=== PATIENT | male | born 1980 | race Caucasian/White ===

== ENCOUNTER 2016-10-06 10:30 | Emergency (ER) | payer MEDICARE, MEDICAID ==
[2016-10-06 10:43] VITALS: RESP 18; TEMP 97
[2016-10-06] MEDS ORDERED: KETOROLAC TROMETHAMINE 30 MG/ML SOL IM ONE (11:06)
[2016-10-06] MEDS ORDERED: CYCLOBENZAPRINE 10 MG TAB PO ONE (11:07)
[2016-10-06] MEDS ORDERED: ACETAMINOPHEN 500 MG 500 MG TAB PO ONE (11:07)
[2016-10-06] MEDS ORDERED: KETOROLAC TROMETHAMINE 30 MG/ML SOL ONE (11:07)
[2016-10-06 11:10] LABS: APPEARANCE,URINE Clear; BILIRUBIN,URINE NEGATIVE (NEGATIVE); COLOR,URINE Yellow; GLUCOSE, URINE (UA) NEGATIVE (NEGATIVE); KETONES,URINE 1+ (NEGATIVE); LEUKOCYTE ESTERASE ,URINE NEGATIVE (NEGATIVE); NITRATE,URINE NEGATIVE (NEGATIVE); OCCULT BLOOD,URINE NEGATIVE (NEG-TRACE); PH,URINE 6.5; UROBILINOGEN,URINE 0.2 (0.2-1.0 EU)
[2016-10-06] MEDS ORDERED: ONDANSETRON HCL 4 MG TAB PO ONE (11:11)
[2016-10-06] MEDS ORDERED: ONDANSETRON HCL 4 MG TAB ONE (11:12)
[2016-10-06 11:15] LABS: RBC,URINE NEG (0-3AV/HPF); WBC,URINE 0-1 (0-5AV/HPF)
[2016-10-06 11:44] LABS: BASOPHILS % (AUTO) 1 % (0-3); EOSINOPHILS % (AUTO) 1 % (0-9); HEMATOCRIT 41 % (39-53); MEAN CORPUSCULAR HGB CONC 35.7 gm/dl (32.0-36.0); MONOCYTES % (AUTO) 5.8 % (0-12)
[2016-10-06 12:00] LABS: ALBUMIN 3.9 gm/dl (3.4-5.0); CALCIUM 9.3 mg/dl (8.5-10.1); POTASSIUM 3.9 mMol/L (3.5-5.1)
[2016-10-06 12:03] VITALS: BP 110/58; PULSE 65; O2SAT 97
== END 2016-10-06 12:20 | disposition home or self-care (01) | DRG 392 ==
LOC: ED 10:30
DX: R10.9 Unspecified abdominal pain (principal)
CPT/HCPCS: 36415; 74176; 80053; 81001; 85025; 96372; 99283; 99284; J1885

== ENCOUNTER 2017-08-09 20:24 | Inpatient (IN) | payer MEDICAID, MEDICARE, OTHER ==
[2017-08-09 20:50] LABS: BASOPHILS % (AUTO) 2 % (0-3); EOSINOPHILS % (AUTO) 0 % (0-9); HEMATOCRIT 38 % (39-53); MEAN CORPUSCULAR HGB CONC 37.5 gm/dl (32.0-36.0); MEAN CORPUSCULAR VOLUME 87 fL (80-100); MONOCYTES % (AUTO) 7.3 % (0-12); NEUTROPHILS % (AUTO) 83.2 % (37-80)
[2017-08-09] MEDS ORDERED: ONDANSETRON HCL 4 MG/2 ML SOL ONE (21:01)
[2017-08-09] MEDS ORDERED: HALOPERIDOL LACTATE 5 MG/ML SOL ONE (21:01)
[2017-08-09] MEDS ORDERED: HALOPERIDOL LACTATE 5 MG/ML SOL IM ONE (21:01)
[2017-08-09 21:05] LABS: ALBUMIN 4.6 gm/dl (3.4-5.0); ALT 38 IU/L (14-63); CALCIUM 11.1 mg/dl (8.5-10.1); GLOM FILT RATE 28 mL/min (>60); SODIUM 142 mMol/L (136-145); THYROID STIMULATING HORMONE 0.451 uIU/ml (0.358-3.740)
[2017-08-09 21:26] LABS: ANISOCYTOSIS SLIGHT
[2017-08-09 22:42] LABS: APPEARANCE,URINE Clear; BILIRUBIN,URINE 1+ (NEGATIVE); COLOR,URINE Yellow; GLUCOSE, URINE (UA) NEGATIVE (NEGATIVE); KETONES,URINE 1+ (NEGATIVE); LEUKOCYTE ESTERASE ,URINE NEGATIVE (NEGATIVE); NITRATE,URINE NEGATIVE (NEGATIVE); OCCULT BLOOD,URINE 1+ (NEG-TRACE); PH,URINE 5.5; UROBILINOGEN,URINE 0.2 (0.2-1.0 EU)
[2017-08-09 22:51] LABS: ICTOTEST,URINE NEGATIVE (NEGATIVE)
[2017-08-09 23:02] LABS: AMPHETAMINES POSITIVE (NEGATIVE); METHADONE NEGATIVE (NEGATIVE); OPIATES(OP13) NEGATIVE (NEGATIVE); PROPOXYPHENE(PPX) NEGATIVE (NEGATIVE); TRICYCLIC ANTIDEPRESSANTS POSITIVE (NEGATIVE)
[2017-08-09 23:03] LABS: OXYCODONE(OXY) NEGATIVE (NEGATIVE)
[2017-08-10] MEDS ORDERED: SODIUM CHLORIDE/KCL 20MEQ 1,000 ML IV ONE (00:18)
[2017-08-10] MEDS ORDERED: HALOPERIDOL LACTATE 5 MG/ML SOL IM PRN (00:47)
[2017-08-10] MEDS ORDERED: LORAZEPAM 2 MG/ML SOL IV PRN (00:49)
[2017-08-10] MEDS: SODIUM CHLORIDE 0.9% FLUSH 10 ML SOL IV SCH ×3 (01:38→17:45)
[2017-08-10] MEDS ORDERED: SODIUM CHLORIDE 0.45% 1000 ML 1,000 ML with POTASSIUM CHLORIDE 2 MEQ/ML 20 MEQ IV SCH (06:00)
[2017-08-10] MEDS ORDERED: SODIUM CHLORIDE/KCL 20MEQ 1,000 ML IV SCH (06:15)
[2017-08-10 07:21] LABS: CALCIUM 9.3 mg/dl (8.5-10.1); POTASSIUM 4.2 mMol/L (3.5-5.1)
[2017-08-10] MEDS: QUETIAPINE FUMARATE 25 MG TAB PO SCH (09:10)
[2017-08-10] MEDS: FLUOXETINE HYDROCHLORIDE 10 MG CAP PO SCH (09:10)
[2017-08-10] MEDS: LEVOTHYROXINE SODIUM 50 MCG TAB PO SCH (09:11)
[2017-08-10] MEDS: DEXTROSE/SALINE 0.45/KCL 20MEQ 1,000 ML/1,000 ML SOL IV SCH ×2 (10:15→20:26)
[2017-08-10] MEDS ORDERED: LORAZEPAM 0.5 MG TAB PO PRN (15:10)
[2017-08-10] MEDS ORDERED: QUETIAPINE FUMARATE 300 MG TAB PO SCH (21:00)
[2017-08-11] MEDS: SODIUM CHLORIDE 0.9% FLUSH 10 ML SOL IV SCH ×2 (02:29→09:45)
[2017-08-11] MEDS: DEXTROSE/SALINE 0.45/KCL 20MEQ 1,000 ML/1,000 ML SOL IV SCH (05:25)
[2017-08-11] MEDS: LEVOTHYROXINE SODIUM 50 MCG TAB PO SCH (06:54)
[2017-08-11 07:52] LABS: CALCIUM 8.2 mg/dl (8.5-10.1); POTASSIUM 3.7 mMol/L (3.5-5.1)
[2017-08-11] MEDS: QUETIAPINE FUMARATE 25 MG TAB PO SCH (09:48)
[2017-08-11] MEDS: FLUOXETINE HYDROCHLORIDE 10 MG CAP PO SCH (09:48)
[2017-08-11 09:58] VITALS: BP 94/60; PULSE 66; RESP 23; TEMP 98.1; O2SAT 98
== END 2017-08-11 10:30 | disposition home or self-care (01) | DRG 880 ==
LOC: ED 20:24 → ACUTE CARE 08-10 00:40
PROVIDERS: ADMIT Family Medicine; ATTEND Family Medicine
DX: R45.851 Suicidal ideations (principal); S21.119A Laceration without foreign body of unspecified front wall of thorax without penetration into thoracic cavity, initial encounter; E87.6 Hypokalemia; N18.9 Chronic kidney disease, unspecified; R45.1 Restlessness and agitation; S41.112A Laceration without foreign body of left upper arm, initial encounter
CPT/HCPCS: 36415; 80048; 80053; 80305; 80307; 81001; 84443; 85025; 93005; 93012; 99285; J1630; J2060; J2405

== ENCOUNTER 2017-09-19 13:09 | Emergency (ER) | payer OTHER ==
[2017-09-19 13:24] VITALS: RESP 16; TEMP 97
[2017-09-19] MEDS ORDERED: KETOROLAC TROMETHAMINE 30 MG/ML SOL IM ONE (13:46)
[2017-09-19] MEDS ORDERED: CYCLOBENZAPRINE 10 MG TAB PO ONE (13:47)
[2017-09-19] MEDS ORDERED: KETOROLAC TROMETHAMINE 30 MG/ML SOL ONE (13:52)
[2017-09-19] MEDS ORDERED: CYCLOBENZAPRINE 10 MG TAB ONE (13:53)
[2017-09-19 16:27] VITALS: BP 110/73; PULSE 67; O2SAT 97
== END 2017-09-19 14:53 | disposition home or self-care (01) | DRG 563 ==
LOC: ED 13:09
DX: S46.811A Strain of other muscles, fascia and tendons at shoulder and upper arm level, right arm, initial encounter (principal)
CPT/HCPCS: 73030; 99283; J1885

== ENCOUNTER 2017-11-05 18:53 | Emergency (ER) | payer OTHER ==
[2017-11-05] MEDS ORDERED: ONDANSETRON HCL 4 MG/2 ML SOL ONE (19:29)
[2017-11-05] MEDS ORDERED: HYDROMORPHONE 1 MG/ML SYRINGE ONE (19:29)
[2017-11-05 19:32] LABS: BASOPHILS % (AUTO) 1 % (0-3); EOSINOPHILS % (AUTO) 0 % (0-9); HEMATOCRIT 42 % (39-53); MEAN CORPUSCULAR HGB CONC 35.9 gm/dl (32.0-36.0); MEAN CORPUSCULAR VOLUME 89 fL (80-100); MONOCYTES % (AUTO) 8.6 % (0-12); NEUTROPHILS % (AUTO) 67.8 % (37-80)
[2017-11-05 19:37] LABS: ALBUMIN 4.4 gm/dl (3.4-5.0); CALCIUM 12.1 mg/dl (8.5-10.1); POTASSIUM 3.8 mMol/L (3.5-5.1)
[2017-11-05] MEDS ORDERED: PANTOPRAZOLE SODIUM 40 MG VIAL 80 MG in SODIUM CHLORIDE 0.9% 100 ML 80 ML IV ONE (19:37)
[2017-11-05] MEDS ORDERED: SODIUM CHLORIDE 0.9% 1000ML 1,000 ML IV ONE (19:37)
[2017-11-05] MEDS ORDERED: ALUMINUM/MAGNESIUM 30 ML SUS PO ONE (19:38)
[2017-11-05] MEDS ORDERED: LIDOCAINE HCL 2% (VISCOUS) 20 ML SOL MT ONE (19:38)
[2017-11-05] MEDS ORDERED: ONDANSETRON HCL 4 MG/2 ML 4 MG in SODIUM CHLORIDE 0.9% 100 ML 100 ML IV ONE (19:38)
[2017-11-05] MEDS ORDERED: HYDROMORPHONE 1 MG/ML SYRINGE IV ONE ×2 (19:39→21:42)
[2017-11-05] MEDS ORDERED: PANTOPRAZOLE SODIUM 40 MG/10 ML PDS IV ONE (19:47)
[2017-11-05] MEDS ORDERED: ONDANSETRON HCL 4 MG/2 ML SOL IV ONE (19:53)
[2017-11-05] MEDS ORDERED: PANTOPRAZOLE SODIUM 40 MG/10 ML PDS ONE (19:59)
[2017-11-05] MEDS ORDERED: ALUMINUM/MAGNESIUM 30 ML SUS ONE (19:59)
[2017-11-05] MEDS ORDERED: LIDOCAINE HCL 2% (VISCOUS) 20 ML SOL ONE (19:59)
[2017-11-05] MEDS: SODIUM CHLORIDE 0.9% FLUSH 10 ML SOL IV PRN ×2 (20:06→21:06)
[2017-11-05 20:52] VITALS: TEMP 97.8
[2017-11-05] MEDS ORDERED: KETOROLAC TROMETHAMINE 30 MG/ML SOL IV ONE (20:59)
[2017-11-05] MEDS ORDERED: KETOROLAC TROMETHAMINE 30 MG/ML SOL ONE (21:01)
[2017-11-05 21:19] VITALS: BP 110/60; PULSE 101; RESP 16; O2SAT 98
[2017-11-05] MEDS ORDERED: ONDANSETRON 4 MG ODT BU ONE (22:00)
== END 2017-11-05 22:05 | disposition home or self-care (01) | DRG 392 ==
LOC: ED 18:53
DX: R10.32 Left lower quadrant pain (principal); K40.90 Unilateral inguinal hernia, without obstruction or gangrene, not specified as recurrent; R10.31 Right lower quadrant pain; R10.33 Periumbilical pain; R11.0 Nausea
CPT/HCPCS: 36415; 74176; 80053; 82150; 85025; 85610; 85730; 99285; J1885; J2405; A9270-GY; J1170

== ENCOUNTER 2017-12-04 04:39 | Emergency (ER) | payer OTHER ==
[2017-12-04 04:50] VITALS: BP 123/88; PULSE 110; RESP 20; TEMP 96.7; O2SAT 100
[2017-12-04] MEDS ORDERED: ACETAMINOPHEN 500 MG 500 MG TAB PO ONE (05:07)
[2017-12-04] MEDS ORDERED: ACETAMINOPHEN 500 MG 500 MG TAB ONE (05:08)
== END 2017-12-04 05:14 | disposition home or self-care (01) | DRG 605 ==
LOC: ED 04:39
DX: S01.01XA Laceration without foreign body of scalp, initial encounter (principal)
CPT/HCPCS: 12002; 99283; G0168

== ENCOUNTER 2017-12-07 03:07 | Emergency (ER) | payer OTHER ==
[2017-12-07] MEDS ORDERED: HALOPERIDOL LACTATE 5 MG/ML SOL ONE (03:16)
[2017-12-07] MEDS: HALOPERIDOL LACTATE 5 MG/ML SOL IM ONE (03:20)
[2017-12-07] MEDS: SODIUM CHLORIDE 0.9% FLUSH 10 ML SOL IV PRN (03:30)
[2017-12-07] MEDS: LORAZEPAM 2 MG/ML SOL IV ONE (03:34)
[2017-12-07] MEDS ORDERED: LORAZEPAM 2 MG/ML SOL ONE (03:44)
[2017-12-07] MEDS: SODIUM CHLORIDE 0.9% 1000ML 1,000 ML IV ONE (03:48)
[2017-12-07 04:00] LABS: BASOPHILS % (AUTO) 2 % (0-3); EOSINOPHILS % (AUTO) 1 % (0-9); HEMATOCRIT 33 % (39-53); MEAN CORPUSCULAR HGB CONC 37.1 gm/dl (32.0-36.0); MEAN CORPUSCULAR VOLUME 88 fL (80-100); MONOCYTES % (AUTO) 10.3 % (0-12); NEUTROPHILS % (AUTO) 59.8 % (37-80)
[2017-12-07 04:01] LABS: ALBUMIN 3.7 gm/dl (3.4-5.0); ALT 40 IU/L (14-63); CALCIUM 8.4 mg/dl (8.5-10.1); GLOM FILT RATE 73 mL/min (>60); POTASSIUM 3.3 mMol/L (3.5-5.1); SODIUM 139 mMol/L (136-145)
[2017-12-07 04:19] LABS: ANISOCYTOSIS SLIGHT AMT
[2017-12-07 06:50] VITALS: O2SAT 99
[2017-12-07 07:31] VITALS: TEMP 96.6
[2017-12-07 08:45] LABS: APPEARANCE,URINE Clear; BILIRUBIN,URINE NEGATIVE (NEGATIVE); COLOR,URINE Yellow; GLUCOSE, URINE (UA) NEGATIVE (NEGATIVE); KETONES,URINE 1+ (NEGATIVE); LEUKOCYTE ESTERASE ,URINE NEGATIVE (NEGATIVE); NITRATE,URINE NEGATIVE (NEGATIVE); OCCULT BLOOD,URINE NEGATIVE (NEG-TRACE); PH,URINE 5.5; UROBILINOGEN,URINE 0.2 (0.2-1.0 EU)
[2017-12-07 08:59] LABS: RBC,URINE NEGATIVE (0-3AV/HPF); WBC,URINE NEGATIVE (0-5AV/HPF)
[2017-12-07 09:04] LABS: METHADONE NEGATIVE (NEGATIVE); OPIATES(OP13) NEGATIVE (NEGATIVE); TRICYCLIC ANTIDEPRESSANTS POSITIVE (NEGATIVE)
[2017-12-07 09:05] LABS: AMPHETAMINES POSITIVE (NEGATIVE); OXYCODONE(OXY) NEGATIVE (NEGATIVE); PROPOXYPHENE(PPX) NEGATIVE (NEGATIVE)
[2017-12-07 09:19] VITALS: BP 98/73; PULSE 75; RESP 24
== END 2017-12-07 10:02 | disposition home or self-care (01) | DRG 897 ==
LOC: ED 03:07
DX: F19.129 Other psychoactive substance abuse with intoxication, unspecified (principal); R00.0 Tachycardia, unspecified
CPT/HCPCS: 80053; 80305; 80307; 81001; 85025; 93005; 99285; J1630; J2060

== ENCOUNTER 2018-06-12 15:38 | Emergency (ER) | payer OTHER ==
[2018-06-12 16:18] VITALS: TEMP 97.7
[2018-06-12] MEDS ORDERED: ACETAMINOPHEN 500 MG 500 MG TAB PO ONE (17:11)
[2018-06-12] MEDS ORDERED: IBUPROFEN 400 MG TAB PO ONE (17:18)
[2018-06-12] MEDS ORDERED: IBUPROFEN 400 MG TAB ONE (17:23)
[2018-06-12 17:34] LABS: BARBITUATES NEGATIVE (NEGATIVE); BENZODIAZEPINES NEGATIVE (NEGATIVE); CANNABINOL(THC) NEGATIVE (NEGATIVE); METHADONE NEGATIVE (NEGATIVE); TRICYCLIC ANTIDEPRESSANTS NEGATIVE (NEGATIVE)
[2018-06-12 17:35] LABS: AMPHETAMINES NEGATIVE (NEGATIVE); COCAINE(COC) NEGATIVE (NEGATIVE); METHAMPHETAMINES NEGATIVE (NEGATIVE); OPIATES(OPI) NEGATIVE (NEGATIVE); OXYCODONE(OXY) NEGATIVE (NEGATIVE); PROPOXYPHENE(PPX) NEGATIVE (NEGATIVE)
[2018-06-12 18:00] VITALS: RESP 16
[2018-06-12 18:02] VITALS: BP 127/76; PULSE 84; O2SAT 97
== END 2018-06-12 17:55 | disposition home or self-care (01) | DRG 90 ==
LOC: ED 15:38
DX: S06.0X9A Concussion with loss of consciousness of unspecified duration, initial encounter (principal); W31.9XXA Contact with unspecified machinery, initial encounter
CPT/HCPCS: 70450; 80305; 99284; A9270-GY

== ENCOUNTER 2018-06-21 10:55 | Emergency (ER) | payer OTHER ==
[2018-06-21 11:27] VITALS: BP 132/92; PULSE 93; RESP 18; TEMP 96.8; O2SAT 99
== END 2018-06-21 12:12 | disposition home or self-care (01) | DRG 914 ==
LOC: ED 10:55
DX: S69.92XA Unspecified injury of left wrist, hand and finger(s), initial encounter (principal)
CPT/HCPCS: 73130; 99282